=== PATIENT | female | born 1990 | race African-American/Black ===

== ENCOUNTER 2017-05-25 04:28 | Emergency (ER) | payer MEDICAID ==
[~2017-05-25] VITALS: Ht 170.2 cm; Wt 129.0 kg
[2017-05-25] MEDS ORDERED: AMLODIPINE 10MG TABLET PO ONE (06:30)
[2017-05-25] MEDS ORDERED: PREDNISONE 20MG TABLET PO ONE (06:45)
[2017-05-25 07:48] VITALS: BP 143/105
== END 2017-05-25 08:04 | disposition home or self-care (01) ==
LOC: ER 04:28
DX: J45.901 Unspecified asthma with (acute) exacerbation (principal); I10 Essential (primary) hypertension; Z88.1 Allergy status to other antibiotic agents
CPT/HCPCS: 81025; 99283; J7512